=== PATIENT | male | born 1975 | race Caucasian/White ===

== ENCOUNTER → 2022-04-28 | Outpatient (CLI) | payer SELFPAY | LOC: M OUTALCOH 09:34 | PROVIDERS: ATTEND Psychiatry & Neurology Psychiatry | DX: Z13.39 Encounter for screening examination for other mental health and behavioral disorders (principal) ==

== ENCOUNTER 2022-06-13 09:15 | Emergency (ER) | payer MEDICAID, SELFPAY ==
[~2022-06-13] VITALS: Ht 190.5 cm; Wt 81.1 kg
[2022-06-13 09:16] VITALS: BP 150/80
[2022-06-13] MEDS ORDERED: KETOROLAC 30 MG/ML 1ML VIAL IM ONE (11:10)
[2022-06-13] MEDS ORDERED: ACETAMINOPHEN TAB 650MG DOSE (2X325MG) PO ONE (11:10)
[2022-06-13] MEDS ORDERED: MEDR4PAK PO (12:33)
[2022-06-13] MEDS ORDERED: CYCL-707 PO (12:33)
== END 2022-06-13 12:47 | disposition home or self-care (01) ==
LOC: M ED 09:15
DX: M54.41 Lumbago with sciatica, right side (principal); X50.9XXA Other and unspecified overexertion or strenuous movements or postures, initial encounter; F17.200 Nicotine dependence, unspecified, uncomplicated
CPT/HCPCS: 72110; 96372; 99281; J1885

== ENCOUNTER → 2023-01-03 | Outpatient (CLI) | payer MEDICAID ==
[~2023-01-03] MED LIST: CYCL-707 PO; MEDR4PAK PO
== END ==
LOC: M OUTALCOH 08:31
PROVIDERS: ATTEND Psychiatry & Neurology Psychiatry
DX: Z13.39 Encounter for screening examination for other mental health and behavioral disorders (principal)

== ENCOUNTER 2023-01-11 08:29 | Outpatient (RCR) | payer MEDICAID | END 2023-02-06 | LOC: M OUTALCOH 08:29 | PROVIDERS: ATTEND Psychiatry & Neurology Psychiatry | DX: Z03.89 Encounter for observation for other suspected diseases and conditions ruled out (principal); Z72.0 Tobacco use ==

== ENCOUNTER → 2024-06-07 | Outpatient (CLI) | payer OTHER | LOC: M RAD 13:00 | PROVIDERS: ATTEND Nurse Practitioner Adult Health | DX: G44.029 Chronic cluster headache, not intractable (principal); M25.551 Pain in right hip; S09.90XA Unspecified injury of head, initial encounter; X58.XXXA Exposure to other specified factors, initial encounter; Y92.9 Unspecified place or not applicable; Y93.9 Activity, unspecified; Y99.9 Unspecified external cause status ==

== ENCOUNTER 2025-02-19 01:11 | Emergency (ER) | payer OTHER ==
[~2025-02-19] VITALS: Ht 190.5 cm; Wt 78.6 kg
[2025-02-19 03:36] VITALS: BP 120/66; TEMP 97.5; O2SAT 98
== END 2025-02-19 04:19 | disposition left against medical advice (07) ==
LOC: M ED 01:11
DX: Z53.21 Procedure and treatment not carried out due to patient leaving prior to being seen by health care provider (principal)